=== PATIENT | male | born 2005 | race Caucasian/White ===

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

== ENCOUNTER 2023-11-13 05:30 | Emergency (ER) | payer OTHER ==
--- NOTE | 2023-11-13 05:52 | ED Physician Documentation ---
History of Present Illness - Stated complaint Stated Complaint: SWOLLEN FACE - Chief complaint Chief Complaint: Heent - History obtained from History obtained from: Patient - Additonal information Additional information: HPI from patient. Patient woke this morning with left upper lip swelling, lateral aspect. He has no other complaints. Patient has history of similar episodes of swelling attributed to his hereditary angioedema. Previous episodes have included posterior oropharyngeal swelling; patient says he does not feel any such swelling at this time, just the left upper lip swelling. Patient says that, in the past, he has received FFP for these episodes. Denies dyspnea, abdominal pain. PD PAST MEDICAL HISTORY - Past Medical History Past Medical History: Yes Cardiovascular: None Respiratory: None Neuro: None Endocrine/Autoimmune: Other HEENT: Other Psych: None Other Past Medical History: hEREDITARY Angioedema - Past Surgical History Past Surgical History: No - Present Medications Home Medications: Ambulatory Orders Medication Instructions Recorded Confirmed No Known Home Medications 11/13/23 11/13/23 - Allergies Allergies/Adverse Reactions: Allergies Allergy/AdvReac Type Severity Reaction Status Date / Time ibuprofen [From Motrin] Allergy Edema Verified 11/13/23 05:41 - Social History Does the pt smoke?: Yes Smoking Status: Current every day smoker Does the pt drink ETOH?: Yes Does the pt have substance abuse?: No - Immunizations Immunizations are current?: No - POLST Patient has POLST: No PD ED PE NORMAL - Vitals Vital signs reviewed: Yes - General General: Alert and oriented X 3, No acute distress, Well developed/nourished - HEENT HEENT: Moist mucous membranes - Cardiac Cardiac: RRR, No murmur - Respiratory Respiratory: No respiratory distress, Clear bilaterally PD ED PE EXPANDED - HEENT HEENT Visual: 1 - swelling (left upper lip swelling without tenderness or erythema) Results - Vitals Vitals: Vital Signs - 24 hr 11/13/23 11/13/23 05:36 06:04 Temperature 36.8 C Heart Rate 89 99 Respiratory 16 16 Rate Blood Pressure 137/79 H 135/75 H O2 Saturation 100 99 Oxygen O2 Source Room air - Labs Labs: Laboratory Tests 11/13/23 11/13/23 05:55 05:55 WBC 8.2 RBC 4.73 Hgb 15.1 Hct 44.3 MCV 93.7 MCH 31.9 H MCHC 34.1 RDW 12.1 Plt Count 205 MPV 10.8 Neut # (Auto) 5.0 Lymph # (Auto) 2.3 [place] # (Auto) 0.8 Eos # (Auto) 0.1 Baso # (Auto) 0.0 Absolute Nucleated RBC 0.00 Nucleated RBC % 0.0 Sodium 138 Potassium 3.8 Chloride 104 Carbon Dioxide 27 Anion Gap 7.0 BUN 12 Creatinine 0.9 Estimated GFR (MDRD) 108 Glucose 96 Calcium 9.8 Total Bilirubin 0.5 AST 25 ALT 22 Alkaline Phosphatase 82 Total Protein 6.9 Albumin 4.8 Globulin 2.1 Albumin/Globulin Ratio 2.3 H Lipase 33 PD Medical Decision Making - ED course Complexity details: considered differential, d/w patient ED course: 2 units of FFP are ordered, initiation of transfusion of send units is pending at the end of my shift and thus care of this patient is turned over the oncoming ED physician (Dr. Delatorre). I ordered 25 mg IV Benadryl. This is given as pre-treatment before the FFP. I am basing this on a note from 2 years ago which indicates the patient had some local erythema at the IV site when he was being transfused FFP in the past. Departure - Departure Forms: PCP List
[2023-11-13 06:06] LABS: BASOPHILS % (AUTO) 0.5 %; EOSINOPHILS # (AUTO) 0.1 10^3/uL (0.0-0.7); EOSINOPHILS % (AUTO) 1.1 %; HCT - HEMATOCRIT 44.3 % (42.0-52.0); HGB - HEMOGLOBIN 15.1 g/dL (14.0-18.0); LYMPHOCYTES # (AUTO) 2.3 10^3/uL (1.5-3.5); LYMPHOCYTES % (AUTO) 27.7 %; MEAN CORPUSCULAR HEMOGLOBIN 31.9 pg (27.0-31.0); MEAN CORPUSCULAR HGB CONC 34.1 g/dL (32.0-36.0); MEAN CORPUSCULAR VOLUME 93.7 fL (80.0-94.0); MEAN PLATELET VOLUME 10.8 fL (7.4-11.4); MONOCYTES # (AUTO) 0.8 10^3/uL (0.0-1.0); MONOCYTES % (AUTO) 9.7 %; NEUTROPHILS % (AUTO) 60.8 %; PLT - PLATELET COUNT 205 10^3/uL (130-450); RED BLOOD COUNT 4.73 10^6/uL (4.70-6.10); RED CELL DISTRIBUTION WIDTH 12.1 % (12.0-15.0); WHITE BLOOD COUNT 8.2 x10^3/uL (4.8-10.8)
[2023-11-13 06:24] LABS: ALBUMIN 4.8 g/dL (3.2-5.5); ALBUMIN/GLOBULIN RATIO 2.3 (1.0-2.2); BILIRUBIN,TOTAL 0.5 mg/dL (0.2-1.0); CALCIUM 9.8 mg/dL (8.5-10.3); CREATININE 0.9 mg/dL (0.6-1.3); POTASSIUM 3.8 mmol/L (3.5-4.5); TOTAL PROTEIN 6.9 g/dL (6.4-8.9)
[2023-11-13] MEDS: diphenhydrAMINE INJ 50 MG/ML VIAL IVP STA (06:54)
[2023-11-13 07:38] VITALS: O2SAT 100
[2023-11-13] MEDS: SODIUM CHLORIDE 0.9% 500 ML IV STA (09:34)
--- NOTE | 2023-11-13 10:15 | ED Physician Documentation ---
ED Addendum - Addendum Addendum: 11/13/23 10:13 The patient did not have any worsening of symptoms. He received the 2 units fresh frozen plasma. He had a transient lower blood pressure in the 90s systolic and was given some fluid bolus as well. He did not have any hives itching or feeling of throat swelling. Subsequent recheck at the end of the second unit and some fluid showed a blood pressure 110s systolic. Heart rate was normal. He states his lip feels like it is getting less swollen and no new symptoms. He does feels comfortable for discharge. He appears safe for discharge. Diagnosis: Acute angioedema 2. History of hereditary angioedema Diisposition: The patient discharged home in stable condition.
[2023-11-13 10:26] VITALS: BP 112/60
== END 2023-11-13 10:26 | disposition home or self-care (01) ==
LOC: ED 05:30
DX: D84.1 Defects in the complement system (principal); F17.200 Nicotine dependence, unspecified, uncomplicated
CPT/HCPCS: 36415; 36430; 80053; 83690; 85025; 86850; 86900; 86901; 96374; 99283; 99285; J1200; P9017